=== PATIENT | male | born 1990 | race Two or more races ===

== ENCOUNTER 2022-06-01 06:01 | Inpatient (IN) | payer OTHER ==
[~2022-06-01] VITALS: Ht 152.4 cm; Wt 90.7 kg
[2022-06-01] MEDS ORDERED: ATIVAN1 M1 (06:09)
--- NOTE | 2022-06-01 06:10 | NUR ---
PACIENTE ALERTA Y ORIENTADO X3. REFIERE VENIR POR DOLOR EN EL LADO DERECHO DEL ABDOMEN DESDE EL LUNES SARAHI QUE A LAS 5:00AM DE HOY EMPEORO. PACIENTE REFIERE NO TENER NAUSEAS, VOMITOS O DIARREAS AL MOMENTO. ADEMAS REFIRIO SE ADMINISTRO 3 ENEMAS EN LA TARDE DE CHELA PORQUE TENIA GASES.
--- NOTE | 2022-06-01 07:18 | NUR ---
PACIENTE EVALUADO POR DR. CHRISSY NÚÑEZ ORDENA TRATAMIENTO. EARLENE MEADOWS EDUCA ACERCA DE TRATAMIENTO Y REFIERE ENTENDER. SE CANALIZA Y COLECTAN MUESTRAS DE LABORATORIO MEDIANTE MEDIDAS ASEPTICAS. SE ADMINISTRA MEDICAMENTOS KANNAN ORDEN MEDICA. PTE EN ESPERA DE RESULTADOS DE LABORATORIO
[2022-06-03] MEDS ORDERED: ESCITALOPRAM OX10 MG (08:19)
[2022-06-03] MEDS ORDERED: VENLAFAXINE H37.5 M1 (08:19)
== END 2022-06-09 12:02 | disposition home or self-care (01) | DRG 339 ==
LOC: ER 06:01 → MEDI 14:03 → SEC-K 14:03 → MEDI 15:57
PROVIDERS: Surgery; ADMIT Specialist; ATTEND Specialist
PROC: 3E1M48Z Irrigation of Peritoneal Cavity using Irrigating Substance, Percutaneous Endoscopic Approach (ICD-10-PCS; 2022-06-01)
PROC: BW21YZZ Computerized Tomography (CT Scan) of Abdomen and Pelvis using Other Contrast (ICD-10-PCS; 2022-06-01)
PROC: 0DTJ4ZZ Resection of Appendix, Percutaneous Endoscopic Approach (ICD-10-PCS; principal; 2022-06-01 17:30)
PROC: BW21YZZ Computerized Tomography (CT Scan) of Abdomen and Pelvis using Other Contrast (ICD-10-PCS; 2022-06-05)
PROC: 0D9W30Z Drainage of Peritoneum with Drainage Device, Percutaneous Approach (ICD-10-PCS; 2022-06-07)
DX: K35.32 Acute appendicitis with perforation, localized peritonitis, and gangrene, without abscess (principal); L02.211 Cutaneous abscess of abdominal wall; T81.49XA Infection following a procedure, other surgical site, initial encounter; R10.31 Right lower quadrant pain; R30.0 Dysuria; B96.20 Unspecified Escherichia coli [E. coli] as the cause of diseases classified elsewhere; Z20.822 Contact with and (suspected) exposure to COVID-19